=== PATIENT | female | born 1945 | race Caucasian/White ===

== ENCOUNTER → 2017-08-28 | Outpatient (CLI) | payer OTHER, MEDICARE | DX: I48.91 Unspecified atrial fibrillation (principal) ==

== ENCOUNTER → 2018-04-16 | Outpatient (CLI) | payer OTHER, MEDICARE | LOC: FIMAGING 13:48 | PROVIDERS: ATTEND Internal Medicine Hematology & Oncology | DX: D46.22 Refractory anemia with excess of blasts 2 (principal); Z85.6 Personal history of leukemia ==